=== PATIENT | female | born 1990 | race Caucasian/White ===

== ENCOUNTER 2017-10-27 20:02 | Emergency (ER) | payer SELFPAY ==
[2017-10-27 20:10] VITALS: BP 125/73; PULSE 84; RESP 20; TEMP 98.6; O2SAT 98
[2017-10-27] MEDS ORDERED: Tetanus/Diphtheria Toxoids 0.5 ml Syringe IM ONE ×2 (20:30→20:39)
[2017-10-27] MEDS ORDERED: Bacitracin 500 Units/gm Oint Foilpak UD ONE (20:49)
--- NOTE | 2017-10-27 21:04 | C.PDOC ---
History Of Present Illness 27 year old female presents to the ER after she was walking, slipped, and fell on her face, injuring her teeth, lip, and left hand. Denies LOC, nausea, or vomiting. Time Seen by Provider: 10/27/17 20:27 Chief Complaint (Nursing): Abnormal Skin Integrity History Per: Patient History/Exam Limitations: no limitations Onset/Duration Of Symptoms: Hrs Current Symptoms Are (Timing): Still Present Location Of Injury: Left: Hand, Anterior: Face Past Medical History Reviewed: Historical Data, Nursing Documentation, Vital Signs Vital Signs: Last Vital Signs Temp 98.6 F 10/27/17 20:07 Pulse 84 10/27/17 20:07 Resp 20 10/27/17 20:07 BP 125/73 10/27/17 20:07 Pulse Ox 98 10/27/17 22:50 - Medical History PMH: Seizures Family History: States: Unknown Family Hx - Social History Hx Tobacco Use: No Hx Alcohol Use: Yes Hx Substance Use: No - Immunization History Hx Tetanus Toxoid Vaccination: No Hx Influenza Vaccination: No Hx Pneumococcal Vaccination: No Review Of Systems ENT: Positive for: Mouth Pain Gastrointestinal: Negative for: Nausea, Vomiting Musculoskeletal: Positive for: Hand Pain Skin: Positive for: Other (Laceration, Abrasion) Neurological: Negative for: Headache, Dizziness, Other (LOC) Physical Exam - Physical Exam Appears: Non-toxic, No Acute Distress Skin: Warm, Dry Head: Normacephalic, No Tenderness (Facial bone) Eye(s): bilateral: Normal Inspection Ear(s): Bilateral: Normal Nose: Normal Oral Mucosa: Moist Tongue: Normal Appearing, No Laceration Lips: Laceration (V shaped to upper lip below the nose), No Other (ver[place] border involvement) Teeth: Other (Multiple extra teeth with a chipped one at the left upper area) Gingiva: Normal Appearing Neck: Normal, No Midline Cervical Tenderness, No Paracervical Tenderness, Supple Extremity: Normal ROM (x4), No Tenderness, Capillary Refill (<2 seconds), No Deformity, No Swelling, Other (Abrasion to left palmar area) Neurological/Psych: Oriented x3, Normal Speech, Normal Motor, Normal Sensation ED Course And Treatment O2 Sat by Pulse Oximetry: 98 (Room air) Pulse Ox Interpretation: Normal Progress Note: Tetanus vaccination administered. Patient tolerated laceration repair well without difficulty. Patient give proper wound care instructions and advised to follow up with PMD or return to the ER if any signs of infection arise. Laceration - Laceration Repair Upper lip below nose Wound Length (In cm): 2x2 Description Of Wound: Stellate Wound Cleansed With: Sterile Saline Anesthesia: Lidocaine 1% Wound Examination: Irrigated With Saline, No FB With Wound Exploration Wound Closure: Suture (x7) Suture Technique And Material Used: Prolene (6-0) Wound Complexity: Intermediate Disposition Counseled Patient/Family Regarding: Diagnosis, Need For Followup, Rx Given - Disposition Disposition: HOME/ ROUTINE Disposition Time: 21:02 Condition: STABLE Additional Instructions: Keep wound clean Follow wound care instructions Apply bacitracin oint Follow up with dentist Suture removal in 1week TYlenol or advil for pain Return to ER if worse Instructions: Care For Your Stitches (ED) Forms: [employer] (Upper Sorbian), Work Excuse - Clinical Impression Clinical Impression: Abrasions of multiple sites, Laceration of skin of lip, Dental injury - PA / [employer] / Resident Statement MD/DO has reviewed & agrees with the documentation as recorded. - Scribe Statement The provider has reviewed the documentation as recorded by the Scribe Robbie Jones All medical record entries made by the Tevin were at my direction and personally dictated by me. I have reviewed the chart and agree that the record accurately reflects my personal performance of the history, physical exam, medical decision making, and the department course for this patient. I have also personally directed, reviewed, and agree with the discharge instructions and disposition.
== END 2017-10-27 21:15 | disposition home or self-care (01) ==
LOC: C.ER 20:02
DX: S01.511A Laceration without foreign body of lip, initial encounter (principal); S09.93XA Unspecified injury of face, initial encounter; S60.512A Abrasion of left hand, initial encounter; W01.0XXA Fall on same level from slipping, tripping and stumbling without subsequent striking against object, initial encounter; Z23 Encounter for immunization

== ENCOUNTER 2017-11-04 15:42 | Emergency (ER) | payer MEDICAID, OTHER ==
[2017-11-04 15:50] VITALS: BP 113/70; PULSE 80; RESP 18; TEMP 98.4; O2SAT 98
--- NOTE | 2017-11-04 17:14 | C.PDOC ---
History Of Present Illness 27 y/o female presents to ED for suture removal s/p fall with injury to face sustaining chipped tooth and laceration to upper lip 1 week ago. Patient denies new injury or any other physical complaint at this time. Chief Complaint (Nursing): Suture/Staple Removal History Per: Patient History/Exam Limitations: no limitations Onset/Duration Of Symptoms: Days Ago Current Symptoms Are (Timing): Better Past Medical History Reviewed: Historical Data, Nursing Documentation, Vital Signs Vital Signs: Last Vital Signs Temp 98.4 F 11/04/17 15:49 Pulse 80 11/04/17 15:49 Resp 18 11/04/17 15:49 BP 113/70 11/04/17 15:49 Pulse Ox 98 11/04/17 17:17 - Medical History PMH: Seizures Surgical History: No Surg Hx Family History: States: No Known Family Hx - Social History Hx Tobacco Use: No Hx Alcohol Use: Yes Hx Substance Use: No - Immunization History Hx Tetanus Toxoid Vaccination: No Hx Influenza Vaccination: No Hx Pneumococcal Vaccination: No Review Of Systems Constitutional: Negative for: Fever, Chills ENT: Negative for: Mouth Pain, Mouth Swelling Cardiovascular: Negative for: Chest Pain Gastrointestinal: Negative for: Nausea, Vomiting Skin: Negative for: Rash Neurological: Negative for: Weakness, Numbness Physical Exam - Physical Exam Appears: Non-toxic, No Acute Distress Skin: Warm, Dry, No Rash Head: Atraumatic, Normacephalic Eye(s): bilateral: Normal Inspection Lips: No Swelling, Other (5 sutures intact to upper lip well healed laceration) Neck: Supple Cardiovascular: Rhythm Regular Respiratory: Normal Breath Sounds, No Rales, No Rhonchi, No Wheezing Neurological/Psych: Oriented x3, Normal Speech ED Course And Treatment O2 Sat by Pulse Oximetry: 98 (RA) Pulse Ox Interpretation: Normal Medical Decision Making Medical Decision Making: Impression- Suture removal Plan: Suture removal Progress: Eschar removed with peroxide and forceps x5 sutures removed with forceps and #11 blade. Patient tolerated Procedure well and d/c Disposition - Disposition Referrals: [facility] [Outside] Disposition: HOME/ ROUTINE Disposition Time: 17:53 Condition: FAIR Instructions: Stitches Removal (ED) Forms: [employer] (Russian) - Clinical Impression Clinical Impression: Removal of suture - Scribe Statement The provider has reviewed the documentation as recorded by the Tevin Posada All medical record entries made by the Tevin were at my direction and personally dictated by me. I have reviewed the chart and agree that the record accurately reflects my personal performance of the history, physical exam, medical decision making, and the department course for this patient. I have also personally directed, reviewed, and agree with the discharge instructions and disposition.
== END 2017-11-04 17:13 | disposition home or self-care (01) ==
LOC: C.ER 15:42
DX: Z48.02 Encounter for removal of sutures (principal)